=== PATIENT | female | born 1965 | race Caucasian/White ===

== ENCOUNTER 2021-11-01 19:52 | Inpatient (IN) | payer OTHER ==
[~2021-11-01] VITALS: Ht 162.6 cm; Wt 132.1 kg
[~2021-11-01 19:52] MED LIST: ALBU90OI INH; DOXY100 PO; GUAI1200ER PO; HYDACE5 PO; HYDGUAL120 PO; LEVSOD150; LEVSOD200; OXYACE7.5T PO; RXOXYACE PO; SULTRIDS PO
[2021-11-01 21:05] LABS: BASOPHILS PERCENT AUTO 1 % (0-2); EOSINOPHILS ABSOLUTE AUTO 0.16 K/mm3 (0.00-0.68); EOSINOPHILS PERCENT AUTO 2 % (0-6); Hemoglobin 17.1 g/dL (11.5-16.0); IMMATURE GRAN ABSOLUTE AUTO 0.08 K/mm3 (0.00-0.10); IMMATURE GRAN PERCENT AUTO 1 % (0-1); LYMPHOCYTES ABSOLUTE AUTO 2.02 K/mm3 (0.84-5.20); LYMPHOCYTES PERCENT AUTO 19 % (21-46); MONOCYTES ABSOLUTE AUTO 0.93 K/mm3 (0.16-1.47); MONOCYTES PERCENT AUTO 9 % (4-13); Mean Corpuscular HGB 30.6 pg (26.0-34.0); Mean Corpuscular HGB Conc 30.5 g/dL (31.5-36.5); Mean Corpuscular Volume 100 fL (80-100); Mean Platelet Volume 9.9 fL (9.1-12.4); NEUTROPHILS ABSOLUTE AUTO 7.26 K/mm3 (1.96-9.15); NEUTROPHILS PERCENT AUTO 69 % (41-73); Platelet Count 245 K/mm3 (150-400); RDW Coefficient Variation 15.2 % (11.7-14.2); RDW Standard Deviation 57.4 fL (35.1-46.3); Red Blood Cell Count 5.59 M/mm3 (3.80-5.20); White Blood Cell Count 10.55 K/mm3 (4.00-11.30)
[2021-11-01 21:09] LABS: Base Excess Venous 13.2 mmol/L; Bicarbonate Venous 33.9 mmol/L (24.0-30.0); PCO2 Venous 59.3 mmHg (38-42); PO2 Venous 91.5 mmHg (38-42); pH Blood Venous 7.41 (7.34-7.37)
[2021-11-01 21:22] LABS: Albumin, Blood 3.2 g/dL (3.4-5.0); Albumin/Globulin Ratio 0.9 (0.8-1.8); Bilirubin, Total 0.4 mg/dL (0.1-1.0); Calcium, Blood 8.7 mg/dL (8.5-10.1); Creatinine, Blood 1.07 mg/dL (0.40-1.00); Globulin, Blood 3.5 g/dL (2.2-4.0); Potassium, Blood 4.1 mmol/L (3.5-5.5); Total Protein, Blood 6.7 g/dL (6.4-8.2)
[2021-11-02] MEDS ORDERED: LEVSOD150 PO (00:05)
[2021-11-02] MEDS ORDERED: IPRAT-ALBUT 0.5-3 ML INH (00:06)
[2021-11-02] MEDS ORDERED: DYAZIDE 37.5-21 EACH PO (00:07)
[2021-11-02] MEDS ORDERED: NICODERM CQ1 EA11 TOP (00:07)
[2021-11-02] MEDS ORDERED: MONT10T PO (00:07)
[2021-11-02] MEDS ORDERED: TIOT18 INH (00:08)
[2021-11-02 01:30] LABS: Influenza A, PCR NEGATIVE (NEGATIVE); Influenza B, PCR NEGATIVE (NEGATIVE); Resp Syncytial Virus, PCR NEGATIVE (NEGATIVE); SARS-Cov-2 (COVID-19) PCR, MMC NEGATIVE (NEGATIVE)
--- NOTE | 2021-11-02 07:31 | NUR ---
PT A/OX4, ON 3L NC WITH GOOD SATURATIONS. PT UP FROM ER WITH SON. PT ABLE TO AMBULATE TO BATHROOM HOWEVER NOTED TO BE UNSTEADY. BED ALARM ON. PT C/O HEADACHE AND STATES THAT AT HOME SHE TAKES TRAMADOL. MD NOTIFIED WITH ONE TIME ORDER. MEDICATION GIVEN AND PT CONTINUED TO C/O HEADACHE AND ASKING FOR SLEEPING MEDICATION. MD CONTACTED WITH ORDER FOR FIORICET. MEDICATION NOT GIVEN PT SOUNDLY ASLEEP. PT ABLE TO SLEEP DURING THE NIGHT. PT UP TO VOID THIS MORNING AT 0645 AND VERY SLEEPY, STATES THAT AT HOME SHE FALLS ALSEEP SOMETIMES WHILE URINATING. PT UNSTEADY AND BACK IN BED W/BED ALARM.
[2021-11-02 08:26] LABS: BASOPHILS ABSOLUTE AUTO 0.03 K/mm3 (0.00-0.23); BASOPHILS PERCENT AUTO 0 % (0-2); EOSINOPHILS PERCENT AUTO 0 % (0-6); Hemoglobin 16.8 g/dL (11.5-16.0); IMMATURE GRAN ABSOLUTE AUTO 0.08 K/mm3 (0.00-0.10); IMMATURE GRAN PERCENT AUTO 1 % (0-1); LYMPHOCYTES PERCENT AUTO 8 % (21-46); MONOCYTES ABSOLUTE AUTO 0.18 K/mm3 (0.16-1.47); MONOCYTES PERCENT AUTO 2 % (4-13); Mean Corpuscular HGB 30.3 pg (26.0-34.0); Mean Corpuscular HGB Conc 29.9 g/dL (31.5-36.5); Mean Corpuscular Volume 101 fL (80-100); NEUTROPHILS ABSOLUTE AUTO 6.64 K/mm3 (1.96-9.15); NEUTROPHILS PERCENT AUTO 88 % (41-73); Platelet Count 241 K/mm3 (150-400); RDW Standard Deviation 56.7 fL (35.1-46.3); Red Blood Cell Count 5.54 M/mm3 (3.80-5.20); White Blood Cell Count 7.53 K/mm3 (4.00-11.30)
[2021-11-02 08:36] LABS: Hematocrit 56.1 % (33.0-51.0)
[2021-11-02 09:10] LABS: Bun/Creatinine Ratio 31.3 (12.0-20.0); Calcium, Blood 8.7 mg/dL (8.5-10.1); Creatinine, Blood 0.96 mg/dL (0.40-1.00); Potassium, Blood 3.9 mmol/L (3.5-5.5)
--- NOTE | 2021-11-02 18:33 | NUR ---
PATIENT IS HERE DUE TO RESP. FAILURE/HYPOXEMIA PATIENT IS UNSTEADY ON HER FEET AND SOB WHEN UP. EVEN WHILE RESTING, PT IS SOB AND HAS DECREASED 02 LEVEL. TODAY SHE WAS PLACED ON CONTINUOUS BIOX. GOAL IS TO KEEP OXYGEN AT 90% (NO HIGHER). SHE WAS INFORMED THAT SHE IS DIABETIC AND IS NOW JUST STARTING INSULIN. SHE HADN'T BEEN DIAGNOSED PREVIOUSLY. SHE WOULD LIKE INFORMATION ON GASTRIC BYPASS SO SHE CAN LOSE WEIGHT TO DECREASE THE NEED OF INSULIN. FAMILY HAS BEEN VISITING- SON BROUGHT IN FAST FOOD AND WAS ASKED TO NOT BRING IN ANY MORE DUE TO HIGH BLOOD SUGARS. PATIENT IS TALKATIVE AND WILLING TO CHAT ABOUT MEDICAL HISTORY. UNSURE OF COMPLIANCE WITH THE REQUEST TO LIMIT OUTSIDE FOOD.
[2021-11-03 04:57] LABS: PCO2 Arterial 94.4 mmHg (35-45); PO2 Arterial 67.8 mmHg (80-100); pH Blood Arterial 7.26 (7.35-7.45)
--- NOTE | 2021-11-03 05:19 | NUR ---
PT with baseline copd smoker with resp failure on bioxx to keep sats greater than 90% kept as close to 3.5 l as possible. appears to have OZ with low perfusion while sleeping. IS CDB. Critical ABG this am called to me by RT & MD ANGEL called bipap orders obtained. Also nicotine replacement patch for tobacco dependance. PT has orthopnea with complaints of ongoing resp infection for months, hypoxia & had orders for home oxygen per family was not compliant. IS per nsg, flutter per RT & Bipap for citical l PH & crit high Pco2. continues on bioxx.
[2021-11-03 05:49] LABS: BASOPHILS ABSOLUTE AUTO 0.03 K/mm3 (0.00-0.23); BASOPHILS PERCENT AUTO 0 % (0-2); EOSINOPHILS ABSOLUTE AUTO 0.03 K/mm3 (0.00-0.68); EOSINOPHILS PERCENT AUTO 0 % (0-6); Hematocrit 53.6 % (33.0-51.0); Hemoglobin 16.1 g/dL (11.5-16.0); IMMATURE GRAN ABSOLUTE AUTO 0.07 K/mm3 (0.00-0.10); IMMATURE GRAN PERCENT AUTO 1 % (0-1); LYMPHOCYTES PERCENT AUTO 20 % (21-46); MONOCYTES ABSOLUTE AUTO 0.97 K/mm3 (0.16-1.47); MONOCYTES PERCENT AUTO 11 % (4-13); Mean Corpuscular HGB 30.9 pg (26.0-34.0); Mean Corpuscular Volume 103 fL (80-100); Mean Platelet Volume 10.4 fL (9.1-12.4); NEUTROPHILS ABSOLUTE AUTO 6.15 K/mm3 (1.96-9.15); NEUTROPHILS PERCENT AUTO 68 % (41-73); Platelet Count 245 K/mm3 (150-400); RDW Standard Deviation 57.1 fL (35.1-46.3); Red Blood Cell Count 5.21 M/mm3 (3.80-5.20); White Blood Cell Count 9.05 K/mm3 (4.00-11.30)
[2021-11-03 05:55] LABS: Bun/Creatinine Ratio 40.6 (12.0-20.0); Calcium, Blood 8.3 mg/dL (8.5-10.1); Creatinine, Blood 0.84 mg/dL (0.40-1.00); Potassium, Blood 4.2 mmol/L (3.5-5.5)
--- NOTE | 2021-11-03 06:46 | NUR ---
PT on BIPAP this AM for critical ph & co2 levels. Had 3.5 l oxygen bled into bipap & desats as low as 50 into 70s while sleeping. increased oxygen via bipap to 7 l & sats improved by bioxx reading. PT has poor tolerance for bipap with some anxiety . Reassurance offered.
[2021-11-03 08:38] LABS: Bicarbonate Venous 33.6 mmol/L (24.0-30.0); PO2 Venous 126 mmHg (38-42); pH Blood Venous 7.32 (7.34-7.37)
[2021-11-03 14:31] LABS: Bicarbonate Venous 26.4 mmol/L (24.0-30.0); PCO2 Venous 53.3 mmHg (38-42); pH Blood Venous 7.35 (7.34-7.37)
--- NOTE | 2021-11-03 15:18 | NUR ---
PATIENT STATES SHE IS "STARTING TO FEEL WEIRD", AND DESCRIBES IT LIKE WHEN YOU HAVE TO MUCH ENERGY. REPORTS THAT SHE HEARS A 'CHRRRRRR' NOISE IN HER HEAD BUT THINKS THAT MAYBE IT IS THE OXYGEN THAT IS RUNNING BY GA. WHILE THIS BRUSH WASHER IS TALKING WITH HER, SHE FORGETS MID-SENTENCE WHAT SHE WANTED TO SAY. SHE IS CHATTING ALOT THIS AFTERNOON, AND OXYGEN IS REMAINING 90 AND ABOVE, HOWEVER IT APPEARS THAT THERE IS SOME FORGETFULNESS OR CONFUSTION PRESENT.
--- NOTE | 2021-11-03 16:58 | NUR ---
VBG'S ARE IMPROVING WELL PATIENT ALERTNESS AND MOOD. SHE STARTED OUT THE DAY LETHARGIC AND ON BIPAP, STILL DESATING. NOW SHE IS ALERT ON NC VISITING WITH FAMILY AND SATTING AT 90-92%. NO SLIDING SCALE INSULIN HAS BEEN REQUIRED THIS SHIFT. LS ARE WHEEZY, ESPECIALLY WITH EXPIRATION, THROUGHOUT.
--- NOTE | 2021-11-04 03:35 | NUR ---
SHIFT SUMMARY PATIENT CHANGED FROM 7L O2 BLEED IN ON BIPAP BY RT TO 10L O2 BLEED IN. PATIENT WAS DESTATING INTO THE 70'S WITH APNEIC BREATHING AT TIMES. PATIENT NOW STATING 92% ON CONTINUOUS PULSE OXIMETRY. ON 5L O2 WHEN OFF BIPAP. AXOX 4 AND 1-2 ASSIST TO BR. PIV REMAINS INTACT. TYLENOL GIVEN FOR NECK PAIN. VSS/AFEBRILE. FAMILY PRESENT FIRST FEW HOURS OF SHIFT. DENIES CHEST PAIN AND N/V. CALL LIGHT IN REACH. BED IN LOWEST POSITION. WILL CONTINUE TO MONITOR UNTIL DAY SHIFT NURSE ASSUMES CARE.
--- NOTE | 2021-11-04 04:37 | NUR ---
PATIENT COUGHING AND DESTATING IN ROOM INTO THE 70'S ON BIPAP. COUGH UP BLOOD AND ASSISTED TO SIT ON SIDE OF BED TAKING OFF BIPAP. PATIENT CLEARED THROAT AND BLOOD AFTER SPITTING INTO TISSUE. RT NOTIFIED. RT IN ROOM AND REPORT TO LEAVE BIPAP OFF AT THIS TIME. BACK ON 5L O2 NC. PATIENT LESS ANXIOUS AND STATING BACK 86%-93% AFTER TALKING TO RT. TM.
[2021-11-04 05:15] LABS: BASOPHILS ABSOLUTE AUTO 0.04 K/mm3 (0.00-0.23); BASOPHILS PERCENT AUTO 1 % (0-2); EOSINOPHILS ABSOLUTE AUTO 0.03 K/mm3 (0.00-0.68); EOSINOPHILS PERCENT AUTO 0 % (0-6); Hemoglobin 16.3 g/dL (11.5-16.0); IMMATURE GRAN ABSOLUTE AUTO 0.03 K/mm3 (0.00-0.10); IMMATURE GRAN PERCENT AUTO 0 % (0-1); LYMPHOCYTES ABSOLUTE AUTO 1.76 K/mm3 (0.84-5.20); LYMPHOCYTES PERCENT AUTO 20 % (21-46); MONOCYTES ABSOLUTE AUTO 0.58 K/mm3 (0.16-1.47); MONOCYTES PERCENT AUTO 7 % (4-13); Mean Corpuscular HGB 30.2 pg (26.0-34.0); Mean Corpuscular HGB Conc 29.4 g/dL (31.5-36.5); Mean Corpuscular Volume 103 fL (80-100); Mean Platelet Volume 9.9 fL (9.1-12.4); NEUTROPHILS ABSOLUTE AUTO 6.44 K/mm3 (1.96-9.15); NEUTROPHILS PERCENT AUTO 73 % (41-73); Platelet Count 247 K/mm3 (150-400); RDW Coefficient Variation 14.6 % (11.7-14.2); RDW Standard Deviation 55.8 fL (35.1-46.3); White Blood Cell Count 8.88 K/mm3 (4.00-11.30)
[2021-11-04 05:23] LABS: Hematocrit 55.4 % (33.0-51.0)
[2021-11-04 05:45] LABS: Albumin, Blood 3.4 g/dL (3.4-5.0); Anion Gap 2 mmol/L (6-16); Blood Urea Nitrogen 37 mg/dL (8-24); Bun/Creatinine Ratio 38.7 (12.0-20.0); CO2, Blood 43 mmol/L (21-32); Calcium, Blood 8.6 mg/dL (8.5-10.1); Chloride, Blood 95 mmol/L (98-108); Creatinine, Blood 0.96 mg/dL (0.40-1.00); Glomerular Filtration Rate 69 (60-); Glucose, Blood 100 mg/dL (70-99); Potassium, Blood 4.1 mmol/L (3.5-5.5); Sodium, Blood 140 mmol/L (136-145)
[2021-11-04 09:03] LABS: Base Excess Venous 19.2 mmol/L; Bicarbonate Venous 36.5 mmol/L (24.0-30.0); PCO2 Venous 97.8 mmHg (38-42); PO2 Venous 42.6 mmHg (38-42)
[2021-11-04 09:04] LABS: pH Blood Venous 7.28 (7.34-7.37)
[2021-11-04 15:25] LABS: pH Blood Venous 7.23 (7.34-7.37)
[2021-11-04 15:26] LABS: Base Excess Venous -13.2 mmol/L; Bicarbonate Venous 14.6 mmol/L (24.0-30.0); PCO2 Venous 34.4 mmHg (38-42); PO2 Venous 64.2 mmHg (38-42)
[2021-11-04 15:55] LABS: PO2 Arterial 59.5 mmHg (80-100); pH Blood Arterial 7.36 (7.35-7.45)
[2021-11-04 16:21] LABS: Albumin, Blood 3.1 g/dL (3.4-5.0); Anion Gap 3 mmol/L (6-16); Blood Urea Nitrogen 34 mg/dL (8-24); Bun/Creatinine Ratio 46.7 (12.0-20.0); CO2, Blood 36 mmol/L (21-32); Calcium, Blood 8.7 mg/dL (8.5-10.1); Chloride, Blood 96 mmol/L (98-108); Creatinine, Blood 0.73 mg/dL (0.40-1.00); Glomerular Filtration Rate 95 (60-); Glucose, Blood 143 mg/dL (70-99); Phosphorus, Blood 2.7 mg/dL (2.5-4.9); Potassium, Blood 4.5 mmol/L (3.5-5.5); Sodium, Blood 135 mmol/L (136-145)
--- NOTE | 2021-11-04 18:15 | NUR ---
PATIENT A/OX4 THIS SHIFT, UP WITH FWW AND 1 ASSIST TO RESTROOM. 5LO2 TO MAINTAIN SATS, ENCOURGING USE OF BIPAP BUT PATIENT NOT TOLERATING WELL TODAY. VSS THIS SHIFT. REDENESS TO FOLDS, OTHERWISE SKIN INTACT. TOLERATING ADA DIET, AC BLOOD SUGARS WITH COVERAGE PER SLIDING SCALE. ANXIOUS AT TIMES, BUT CALMS WITH CONVERSATION. FAMILY AT BEDSIDE THROUGHOUT THE DAY ASSISTING WITH CARE.
--- NOTE | 2021-11-05 01:49 | NUR ---
PATIENT IN AND OUT OF BED PULLING OFF CPAP AND 02 MONITORING. BOTH BEING CONSTANTLY REPLACED PATIENT GETS UP AND DOWN. 02 DIPPING DOWN INTO THE LOW 80'S EACH TIME SHE WOULD DO THIS. FINALLY, 02 VIA HIGH FLOW CANULLA PLACED AND FLOW INCREASED TO 5 LITERS TO MAINTAIN SATURATION BETWEEN 88 AND 92% AT REST AT SIDE OF BED. IMPORTANCE OF KEEPING [address] EXPLAINED AGAIN TO PATIENT. PATIENT AGAIN VERBALIZES UNDERSTANDING OF CONSEQUENCES OF POOR 02 SATURATION. WILL CONTINUE CLOSE MONITORING
[2021-11-05 04:52] LABS: BASOPHILS ABSOLUTE AUTO 0.03 K/mm3 (0.00-0.23); BASOPHILS PERCENT AUTO 0 % (0-2); EOSINOPHILS ABSOLUTE AUTO 0.01 K/mm3 (0.00-0.68); EOSINOPHILS PERCENT AUTO 0 % (0-6); Hematocrit 51.5 % (33.0-51.0); Hemoglobin 15.7 g/dL (11.5-16.0); IMMATURE GRAN ABSOLUTE AUTO 0.03 K/mm3 (0.00-0.10); IMMATURE GRAN PERCENT AUTO 0 % (0-1); LYMPHOCYTES ABSOLUTE AUTO 1.53 K/mm3 (0.84-5.20); LYMPHOCYTES PERCENT AUTO 18 % (21-46); MONOCYTES ABSOLUTE AUTO 0.75 K/mm3 (0.16-1.47); MONOCYTES PERCENT AUTO 9 % (4-13); Mean Corpuscular HGB 30.8 pg (26.0-34.0); Mean Corpuscular HGB Conc 30.5 g/dL (31.5-36.5); Mean Corpuscular Volume 101 fL (80-100); NEUTROPHILS ABSOLUTE AUTO 6.26 K/mm3 (1.96-9.15); NEUTROPHILS PERCENT AUTO 73 % (41-73); Platelet Count 220 K/mm3 (150-400); RDW Coefficient Variation 14.3 % (11.7-14.2); RDW Standard Deviation 54.2 fL (35.1-46.3); White Blood Cell Count 8.61 K/mm3 (4.00-11.30)
[2021-11-05 05:10] LABS: Albumin, Blood 3.1 g/dL (3.4-5.0); Anion Gap 2 mmol/L (6-16); Blood Urea Nitrogen 32 mg/dL (8-24); CO2, Blood 42 mmol/L (21-32); Calcium, Blood 8.5 mg/dL (8.5-10.1); Chloride, Blood 96 mmol/L (98-108); Glomerular Filtration Rate 85 (60-); Glucose, Blood 112 mg/dL (70-99); Phosphorus, Blood 3.2 mg/dL (2.5-4.9); Sodium, Blood 140 mmol/L (136-145)
--- NOTE | 2021-11-05 06:13 | NUR ---
aWAKE MOST OF THE NIGHT. UNABLE TO TOLERATE BIPAP/CPAP MACHINE. RT AWARE PATIENT COULD NOT KEEP MASK ON FACE. INITIALLY VERY IMPULSIVE REMOVING MASK, AND 02 MONITOR TO GET OOB. THEN WHEN SHE FINALLY FELL ASLEEP, MASK KEPT SLIPPING ABOVE HER MOUTH, AND SATS WOULD DROP INTO HIGH 70'S. FINALLY REPLACED MASK WITH 5 LITERS HIGH FLOW CANULLA, AND PATIENT NEVER DIPPED BELOW 87% WHILE ASLEEP. PATIENT DEFINATELY NEEDS ALARM AT NIGHTFOR SAFETY
--- NOTE | 2021-11-05 11:48 | NUR ---
PT SON AT BEDSIDE
--- NOTE | 2021-11-05 14:58 | NUR ---
PATIENT STATED HER BOTTOM/COCCYX WAS HURTING. REPOSITIONED ON PILLOWS AND PULLED HER UP IN BED.
--- NOTE | 2021-11-05 18:26 | NUR ---
SHIFT SUMMARY: PATIENT ALERT AND ORIENTED X4. SHE IS A 1 PERSON ASSIST WITH A FWW. SHE IS TOLERATING THE O2 AND BIPAP BUT NEEDS A REMINDER TO KEEP THEM ON. O2 IS SET AT 5L AND THE BIPAP AT 10L. SHE HAS HAD FAMILY IN HER ROOM MOST OF THE SHIFT. SHE HAS SOME REDNESS WITHIN HER FOLDS. 1-2+ EDEMA IN BLE. HER O2 HAS REMAINED ABOVE 88% THE MAJORITTY OF THE SHIFT. HAS NOT COMPLAINED OF PAIN OR NAUSEA. BED IN LOWEST POSITION, CALL LIGHT IN REACH. WILL CONTINUE TO MONITOR UNTIL END OF SHIFT.
--- NOTE | 2021-11-06 04:47 | NUR ---
PT ON AND OFF CPAP ALL NIGHT. SATS RANGING FROM 84-91. PT GETS ANXIOUS WITH CPAP ON AND IS UNCOMFORTABLE IN BED. AT 0430 PT PUT IN CHAIR WITH CPAP AND GIVEN TYLENOL AND ICE FOR BACK PAIN.
[2021-11-06 05:29] LABS: PCO2 Venous 77.7 mmHg (38-42); PO2 Venous 115 mmHg (38-42); pH Blood Venous 7.35 (7.34-7.37)
[2021-11-06 05:30] LABS: Base Excess Venous 17.7 mmol/L
[2021-11-06 05:49] LABS: Thyroid Stimulating Hormone 44.8 uIU/mL (0.360-4.800); Thyroxine (T4) 3.9 ug/dL (4.8-13.9)
--- NOTE | 2021-11-06 11:03 | NUR ---
O2 SATURATION PATIENT PLACED ON 2L/NC AND OXYGEN SATURATION OBSERVED PER OLEG'S REQUEST TO SHOW NEED FOR BIPAP. PATIENT BSERVED TO BE 84% ON 2L AFTER 3 MINUTES AND 81% AFTER 5 MINUTES. PATIENT RETURNED TO 6L/NC AND RECOVERED TO 92%
--- NOTE | 2021-11-06 18:14 | NUR ---
PATIENT CONTINUES TO HAVE PAIN IN THE SHOULDERS, NECK, BACK PART OF HER CHRONIC ddd. OXYGEN IS SET AT 2 L AND PATIENT IS SATTING 92% USING FLUTTER VALVE. PATIENT HAD PT EVAL TODAY, AND THEY DETERMINED SHE DOES NOT TO HAVE PT. THEY SAID SHE IS AT HER BASE LINE. PLAN IS TO DISCHARGE TOMORROW WITH HOME OXYGEN- SHE IS STILL UNSURE OF IF HOME IS GOING [place], OR WITH KIDS IN [place].
--- NOTE | 2021-11-07 04:34 | NUR ---
SHIFT SUMMARY - NO ACUTE CHANGES THROUGHOUT THIS SHIFT. PT HAS SLEPT FOR APPX 4 HOURS WITH THE TRILOGY ON, WITH AN OCCASIONAL DESAT TO LOW 80'S WITH A RECOVERY TIME, WITHOUT ANY ADDITIONAL INTERVENTIONS, WITHIN 30 SECONDS TO SATS IN THE UPPER 80'S/LOW 90'S. PT DENIED ANY PAIN TONIGHT. PT IS ANTICIPATING DISCHARGE HOME TODAY TO THE CARE OF HER FAMILY. PT WAS UP TO THE BRP WITH A SBA, WITH A WALKER. CALL LIGHT WITHIN REACH. BED IN LOW POSITION. WILL CONTINUE TO MONITOR UNTIL AM SHIFT CHANGE.
[2021-11-07] MEDS ORDERED: LISI20 PO (11:25)
[2021-11-07] MEDS ORDERED: METF500C PO (11:26)
[2021-11-07] MEDS ORDERED: PRED20 PO (11:31)
[2021-11-07] MEDS ORDERED: LASIX20 M2 PO (17:11)
--- NOTE | 2021-11-07 17:38 | NUR ---
DC HOME/LATE ENTRY: AT 1555 PT DC'D HOME WITH SON WITH HOME O2 AND A C-PAP MACHINE PROVIDED BY [facility]. PIV DC'D WITH CATH TIP INTACT, SITE WNL'S. DC INSTRUCTIONS GIVEN TO PT. ALL PERSONAL BELONGINGS SENT WITH PT.
== END 2021-11-07 16:11 | disposition home or self-care (01) | DRG 189 ==
LOC: ER 19:52 → MEDS 23:14
PROVIDERS: Emergency Medicine; Family Medicine; Internal Medicine; Student in an Organized Health Care Education/Training Program; ADMIT Hospitalist
PROC: 5A09457 Assistance with Respiratory Ventilation, 24-96 Consecutive Hours, Continuous Positive Airway Pressure (ICD-10-PCS; principal; 2021-11-01)
DX: J96.21 Acute and chronic respiratory failure with hypoxia (principal); G92.8 Other toxic encephalopathy; E66.2 Morbid (severe) obesity with alveolar hypoventilation; Z68.42 Body mass index [BMI] 45.0-49.9, adult; J44.1 Chronic obstructive pulmonary disease with (acute) exacerbation; E87.2 Acidosis; Z20.822 Contact with and (suspected) exposure to COVID-19; E11.65 Type 2 diabetes mellitus with hyperglycemia; J96.02 Acute respiratory failure with hypercapnia; I10 Essential (primary) hypertension; E03.9 Hypothyroidism, unspecified; R04.0 Epistaxis; F17.210 Nicotine dependence, cigarettes, uncomplicated; Z79.899 Other long term (current) drug therapy; Z71.6 Tobacco abuse counseling; Z98.890 Other specified postprocedural states; Z88.0 Allergy status to penicillin; Z88.6 Allergy status to analgesic agent; Z90.710 Acquired absence of both cervix and uterus
CPT/HCPCS: 0241U; 36415; 36600; 71045; 80048; 80053; 80069; 82803; 82947; 83036; 83880; 84436; 84443; 84484; 85025; 93005; 93010; 94640; 94645; 94660; 94664; 94760; 94761; 94762; 96374; 96376; 97161; 97530; 99285-25; A9270; J1650; J2930; J7512

== ENCOUNTER → 2021-12-06 | Outpatient (CLI) | payer OTHER ==
[~2021-12-06] MED LIST changes: +DYAZIDE 37.5-21 EACH PO; +IPRAT-ALBUT 0.5-3 ML INH; +LASIX20 M2 PO; +LEVSOD150 PO; +LISI20 PO; +METF500C PO; +MONT10T PO; +NICODERM CQ1 EA11 TOP; +PRED20 PO; +TIOT18 INH
== END ==
LOC: LAB SHORT 15:03 → LAB 15:03
DX: L03.116 Cellulitis of left lower limb (principal)
CPT/HCPCS: 87070; 87075; 87205

== ENCOUNTER → 2022-02-10 | Outpatient (CLI) | payer OTHER | END | disposition home or self-care (01) | LOC: LAB SHORT 10:20 | DX: R30.0 Dysuria (principal) | CPT/HCPCS: 87086 ==

== ENCOUNTER → 2022-03-29 | Outpatient (CLI) | payer OTHER | END | disposition home or self-care (01) | LOC: LAB SHORT 16:51 → LAB 16:51 | DX: R30.0 Dysuria (principal) | CPT/HCPCS: 87086 ==

== ENCOUNTER → 2022-10-20 | Outpatient (CLI) | payer OTHER | LOC: LAB 17:26 → LAB SHORT 17:26 | DX: R35.0 Frequency of micturition (principal) | CPT/HCPCS: 87086 ==

== ENCOUNTER → 2022-11-16 | Outpatient (CLI) | payer OTHER ==
[2022-11-17 10:56] LABS: Candida species (DNA Probe) Negative (NEGATIVE); G. vaginalis (DNA Probe) Negative (NEGATIVE); T. vaginalis (DNA Probe) Negative (NEGATIVE)
== END | disposition home or self-care (01) ==
LOC: LAB SHORT 16:00 → LAB 16:00
PROVIDERS: Physician Assistant
DX: N39.0 Urinary tract infection, site not specified (principal); L29.3 Anogenital pruritus, unspecified
CPT/HCPCS: 87086; 87147; 87480; 87510; 87660

== ENCOUNTER → 2022-12-10 | Outpatient (CLI) | payer OTHER | LOC: LAB SHORT 17:08 → LAB 17:08 | DX: N89.8 Other specified noninflammatory disorders of vagina (principal) | CPT/HCPCS: 87252; 87254 ==

== ENCOUNTER → 2022-12-15 | Outpatient (CLI) | payer OTHER | END | disposition home or self-care (01) | LOC: LAB SHORT 17:58 → LAB 17:58 | DX: B37.31 Acute candidiasis of vulva and vagina (principal) | CPT/HCPCS: 87077; 87086; 87186 ==

== ENCOUNTER 2023-03-14 19:31 | Emergency (ER) | payer OTHER ==
[~2023-03-14] VITALS: Ht 160 cm; Wt 126.5 kg
[2023-03-14 20:05] LABS: BASOPHILS ABSOLUTE AUTO 0.05 K/mm3 (0.00-0.23); BASOPHILS PERCENT AUTO 1 % (0-2); EOSINOPHILS ABSOLUTE AUTO 0.15 K/mm3 (0.00-0.68); EOSINOPHILS PERCENT AUTO 2 % (0-6); Hematocrit 37.7 % (33.0-51.0); Hemoglobin 12.4 g/dL (11.5-16.0); IMMATURE GRAN ABSOLUTE AUTO 0.11 K/mm3 (0.00-0.10); IMMATURE GRAN PERCENT AUTO 1 % (0-1); LYMPHOCYTES ABSOLUTE AUTO 0.74 K/mm3 (0.84-5.20); LYMPHOCYTES PERCENT AUTO 8 % (21-46); MONOCYTES PERCENT AUTO 6 % (4-13); Mean Corpuscular HGB 30.6 pg (26.0-34.0); Mean Corpuscular HGB Conc 32.9 g/dL (31.5-36.5); Mean Corpuscular Volume 93 fL (80-100); Mean Platelet Volume 10.4 fL (9.1-12.4); NEUTROPHILS ABSOLUTE AUTO 8.28 K/mm3 (1.96-9.15); NEUTROPHILS PERCENT AUTO 83 % (41-73); Platelet Count 193 K/mm3 (150-400); RDW Coefficient Variation 12.4 % (11.7-14.2); Red Blood Cell Count 4.05 M/mm3 (3.80-5.20); White Blood Cell Count 9.93 K/mm3 (4.00-11.30)
[2023-03-14 20:13] LABS: Albumin, Blood 3.7 g/dL (3.4-5.0); Albumin/Globulin Ratio 0.9 (0.8-1.8); Bilirubin, Total 0.6 mg/dL (0.1-1.0); Bun/Creatinine Ratio 16.5 (12.0-20.0); Calcium, Blood 9.7 mg/dL (8.5-10.1); Creatinine, Blood 1.03 mg/dL (0.40-1.00); Globulin, Blood 4.1 g/dL (2.2-4.0); Potassium, Blood 3.6 mmol/L (3.5-5.5); Total Protein, Blood 7.8 g/dL (6.4-8.2)
[2023-03-14 21:08] LABS: Influenza A, PCR NEGATIVE (NEGATIVE); Influenza B, PCR NEGATIVE (NEGATIVE); Resp Syncytial Virus, PCR NEGATIVE (NEGATIVE)
[2023-03-14 21:15] VITALS: BP 153/93
[2023-03-14] MEDS ORDERED: ONDA4ODT MM (21:46)
[2023-03-14] MEDS ORDERED: Prednisone20 MG PO (21:46)
[2023-03-14 22:40] LABS: SARS-Cov-2 (COVID-19) PCR, MMC POSITIVE (NEGATIVE)
== END 2023-03-14 22:51 | disposition home or self-care (01) ==
LOC: ER 19:31
PROVIDERS: Emergency Medicine; Student in an Organized Health Care Education/Training Program
DX: U07.1 COVID-19 (principal); J43.9 Emphysema, unspecified; I10 Essential (primary) hypertension; E03.9 Hypothyroidism, unspecified; F17.210 Nicotine dependence, cigarettes, uncomplicated; Z88.0 Allergy status to penicillin; Z88.6 Allergy status to analgesic agent; Z79.899 Other long term (current) drug therapy
CPT/HCPCS: 0241U; 71045; 80053; 84484; 85025; 93005; 93010; 94640; 94644; 94664; 96374; 96375; 99285-25; A9270; J2405; J2930

== ENCOUNTER → 2023-06-03 | Outpatient (CLI) | payer OTHER ==
[~2023-06-03] MED LIST changes: +ONDA4ODT MM; +Prednisone20 MG PO
== END ==
LOC: LAB 17:14 → LAB SHORT 17:14
DX: L02.215 Cutaneous abscess of perineum (principal)
CPT/HCPCS: 87070; 87077; 87186; 87205

== ENCOUNTER 2023-06-29 02:01 | Day surgery (SDC) | payer OTHER | END 2023-06-29 23:25 | disposition home or self-care (01) | LOC: WOUND 02:01 | DX: L02.214 Cutaneous abscess of groin (principal); E03.9 Hypothyroidism, unspecified; I10 Essential (primary) hypertension; E11.9 Type 2 diabetes mellitus without complications; J44.9 Chronic obstructive pulmonary disease, unspecified; Z88.0 Allergy status to penicillin | CPT/HCPCS: G0463 ==

== ENCOUNTER 2023-07-06 02:58 | Day surgery (SDC) | payer OTHER | END 2023-07-06 23:05 | disposition home or self-care (01) | LOC: WOUND 02:58 | DX: L02.215 Cutaneous abscess of perineum (principal); J44.9 Chronic obstructive pulmonary disease, unspecified; E11.9 Type 2 diabetes mellitus without complications; I10 Essential (primary) hypertension; E03.9 Hypothyroidism, unspecified; Z99.81 Dependence on supplemental oxygen | CPT/HCPCS: A9270; G0463 ==

== ENCOUNTER 2023-07-14 01:36 | Day surgery (SDC) | payer OTHER | END 2023-07-14 23:23 | disposition home or self-care (01) | LOC: WOUND 01:36 | DX: L02.214 Cutaneous abscess of groin (principal); E03.9 Hypothyroidism, unspecified; E11.9 Type 2 diabetes mellitus without complications; I10 Essential (primary) hypertension; J44.9 Chronic obstructive pulmonary disease, unspecified; Z99.81 Dependence on supplemental oxygen | CPT/HCPCS: A9270; G0463 ==

== ENCOUNTER 2023-07-21 01:58 | Day surgery (SDC) | payer OTHER | END 2023-07-21 22:56 | disposition home or self-care (01) | LOC: WOUND 01:58 | DX: L02.215 Cutaneous abscess of perineum (principal); E03.9 Hypothyroidism, unspecified; E11.8 Type 2 diabetes mellitus with unspecified complications; I10 Essential (primary) hypertension; J44.9 Chronic obstructive pulmonary disease, unspecified | CPT/HCPCS: G0463 ==

== ENCOUNTER 2023-07-28 01:33 | Day surgery (SDC) | payer OTHER ==
[2023-07-28] MEDS ORDERED: Miconazole Nitrate 2% 85 GM PWD ONE (14:05)
== END 2023-07-28 22:54 | disposition home or self-care (01) ==
LOC: WOUND 01:33
DX: L02.214 Cutaneous abscess of groin (principal); L02.215 Cutaneous abscess of perineum; E11.9 Type 2 diabetes mellitus without complications; J44.9 Chronic obstructive pulmonary disease, unspecified; E03.9 Hypothyroidism, unspecified; I10 Essential (primary) hypertension
CPT/HCPCS: A9270; G0463

== ENCOUNTER 2023-08-04 03:23 | Day surgery (SDC) | payer OTHER ==
[2023-08-04] MEDS ORDERED: Miconazole Nitrate 2% 85 GM PWD ONE (12:50)
== END 2023-08-04 22:47 | disposition home or self-care (01) ==
LOC: WOUND 03:23
DX: L02.215 Cutaneous abscess of perineum (principal); E03.9 Hypothyroidism, unspecified; E11.8 Type 2 diabetes mellitus with unspecified complications; I10 Essential (primary) hypertension
CPT/HCPCS: A9270; G0463

== ENCOUNTER 2023-09-22 02:37 | Day surgery (SDC) | payer OTHER | END 2023-09-22 23:12 | disposition home or self-care (01) | LOC: WOUND 02:37 | DX: L02.215 Cutaneous abscess of perineum (principal); L02.214 Cutaneous abscess of groin; S31.104D Unspecified open wound of abdominal wall, left lower quadrant without penetration into peritoneal cavity, subsequent encounter; J44.9 Chronic obstructive pulmonary disease, unspecified; E03.9 Hypothyroidism, unspecified; E11.8 Type 2 diabetes mellitus with unspecified complications; I10 Essential (primary) hypertension | CPT/HCPCS: G0463 ==

== ENCOUNTER 2023-10-06 04:51 | Day surgery (SDC) | payer OTHER | END 2023-10-06 23:02 | disposition home or self-care (01) | LOC: WOUND 04:51 | DX: L02.215 Cutaneous abscess of perineum (principal); E03.9 Hypothyroidism, unspecified; E11.8 Type 2 diabetes mellitus with unspecified complications; I10 Essential (primary) hypertension | CPT/HCPCS: G0463 ==

== ENCOUNTER 2023-10-13 02:51 | Day surgery (SDC) | payer OTHER | END 2023-10-13 22:57 | disposition home or self-care (01) | LOC: WOUND 02:51 | DX: L02.215 Cutaneous abscess of perineum (principal); E03.9 Hypothyroidism, unspecified; E11.8 Type 2 diabetes mellitus with unspecified complications; I10 Essential (primary) hypertension; J44.9 Chronic obstructive pulmonary disease, unspecified | CPT/HCPCS: G0463 ==

== ENCOUNTER 2023-10-20 03:48 | Day surgery (SDC) | payer OTHER ==
[2023-10-20] MEDS ORDERED: Miconazole Nitrate 2% 85 GM PWD ONE (14:41)
[2023-10-20] MEDS ORDERED: Miconazole Nitrate 28 GM CREAM..G. TOP ONE (14:43)
== END 2023-10-20 23:13 | disposition home or self-care (01) ==
LOC: WOUND 03:48
DX: L02.215 Cutaneous abscess of perineum (principal); E11.9 Type 2 diabetes mellitus without complications; J44.9 Chronic obstructive pulmonary disease, unspecified; E03.9 Hypothyroidism, unspecified; I10 Essential (primary) hypertension
CPT/HCPCS: A9270; G0463

== ENCOUNTER 2023-11-28 23:28 | Emergency (ER) | payer OTHER ==
[~2023-11-28] VITALS: Ht 162.6 cm; Wt 134.7 kg
[2023-11-28 23:39] VITALS: BP 131/70
== END 2023-11-29 00:33 | disposition home or self-care (01) ==
LOC: ER 23:28
DX: I83.891 Varicose veins of right lower extremity with other complications (principal); I10 Essential (primary) hypertension; J44.9 Chronic obstructive pulmonary disease, unspecified; E03.9 Hypothyroidism, unspecified; Z79.52 Long term (current) use of systemic steroids; Z79.84 Long term (current) use of oral hypoglycemic drugs; Z79.899 Other long term (current) drug therapy; Z88.0 Allergy status to penicillin; Z88.6 Allergy status to analgesic agent
CPT/HCPCS: 99282

== ENCOUNTER 2023-12-07 02:46 | Day surgery (SDC) | payer OTHER ==
[2023-12-07] MEDS ORDERED: Miconazole Nitrate 2% 85 GM PWD ONE (07:46)
== END 2023-12-07 22:47 | disposition home or self-care (01) ==
LOC: WOUND 02:46
DX: L02.214 Cutaneous abscess of groin (principal); E03.9 Hypothyroidism, unspecified; E11.8 Type 2 diabetes mellitus with unspecified complications; I10 Essential (primary) hypertension; J44.9 Chronic obstructive pulmonary disease, unspecified
CPT/HCPCS: A9270; G0463

== ENCOUNTER 2023-12-14 03:11 | Day surgery (SDC) | payer OTHER ==
[2023-12-14] MEDS ORDERED: Miconazole Nitrate 2% 85 GM PWD ONE (07:42)
== END 2023-12-14 23:11 | disposition home or self-care (01) ==
LOC: WOUND 03:11
DX: L02.215 Cutaneous abscess of perineum (principal); E03.9 Hypothyroidism, unspecified; E11.8 Type 2 diabetes mellitus with unspecified complications; I10 Essential (primary) hypertension
CPT/HCPCS: A9270; G0463

== ENCOUNTER 2023-12-21 02:06 | Day surgery (SDC) | payer OTHER ==
[2023-12-21] MEDS ORDERED: Miconazole Nitrate 28 GM CREAM..G. TOP ONE (08:16)
== END 2023-12-21 23:00 | disposition home or self-care (01) ==
LOC: WOUND 02:06
DX: L02.214 Cutaneous abscess of groin (principal); J44.9 Chronic obstructive pulmonary disease, unspecified; E11.9 Type 2 diabetes mellitus without complications; L02.215 Cutaneous abscess of perineum; I10 Essential (primary) hypertension; E03.9 Hypothyroidism, unspecified; Z99.81 Dependence on supplemental oxygen
CPT/HCPCS: A9270; G0463

== ENCOUNTER 2023-12-28 02:22 | Day surgery (SDC) | payer OTHER | END 2023-12-29 22:45 | disposition home or self-care (01) | LOC: WOUND 02:22 | DX: L02.214 Cutaneous abscess of groin (principal); E11.9 Type 2 diabetes mellitus without complications; J44.9 Chronic obstructive pulmonary disease, unspecified; E03.9 Hypothyroidism, unspecified; I10 Essential (primary) hypertension; Z99.81 Dependence on supplemental oxygen | CPT/HCPCS: G0463 ==

== ENCOUNTER 2024-01-11 02:32 | Day surgery (SDC) | payer OTHER | END 2024-01-11 23:00 | disposition home or self-care (01) | LOC: WOUND 02:32 | DX: L02.214 Cutaneous abscess of groin (principal); L02.215 Cutaneous abscess of perineum; J44.9 Chronic obstructive pulmonary disease, unspecified; E03.9 Hypothyroidism, unspecified; E11.9 Type 2 diabetes mellitus without complications; I10 Essential (primary) hypertension; Z99.81 Dependence on supplemental oxygen | CPT/HCPCS: G0463 ==

== ENCOUNTER → 2024-01-22 | Outpatient (CLI) | payer OTHER | LOC: LAB 15:48 → LAB SHORT 15:48 | DX: N39.0 Urinary tract infection, site not specified (principal) | CPT/HCPCS: 87077; 87086; 87147; 87186 ==

== ENCOUNTER 2024-02-01 05:28 | Day surgery (SDC) | payer OTHER | END 2024-02-01 23:13 | disposition home or self-care (01) | LOC: WOUND 05:28 | DX: L02.214 Cutaneous abscess of groin (principal); E11.8 Type 2 diabetes mellitus with unspecified complications; I10 Essential (primary) hypertension; E03.9 Hypothyroidism, unspecified; Z12.2 Encounter for screening for malignant neoplasm of respiratory organs; Z87.891 Personal history of nicotine dependence; J43.9 Emphysema, unspecified; R91.8 Other nonspecific abnormal finding of lung field | CPT/HCPCS: 71271; A6196; G0463 ==

== ENCOUNTER → 2024-02-12 | Outpatient (CLI) | payer OTHER | END | disposition home or self-care (01) | LOC: LAB SHORT 15:26 → LAB 15:26 | DX: N39.0 Urinary tract infection, site not specified (principal) | CPT/HCPCS: 87086 ==

== ENCOUNTER 2024-02-15 03:56 | Day surgery (SDC) | payer OTHER | END 2024-02-15 22:48 | disposition home or self-care (01) | LOC: WOUND 03:56 | DX: L02.214 Cutaneous abscess of groin (principal); E03.9 Hypothyroidism, unspecified; E11.8 Type 2 diabetes mellitus with unspecified complications; I10 Essential (primary) hypertension; J44.9 Chronic obstructive pulmonary disease, unspecified | CPT/HCPCS: G0463 ==

== ENCOUNTER 2024-03-07 04:39 | Day surgery (SDC) | payer OTHER | END 2024-03-07 23:00 | disposition home or self-care (01) | LOC: WOUND 04:39 | DX: L02.214 Cutaneous abscess of groin (principal); E03.9 Hypothyroidism, unspecified; E11.8 Type 2 diabetes mellitus with unspecified complications; I10 Essential (primary) hypertension; J44.9 Chronic obstructive pulmonary disease, unspecified | CPT/HCPCS: G0463 ==

== ENCOUNTER → 2024-03-07 | Outpatient (CLI) | payer OTHER | LOC: LAB 09:23 → LAB SHORT 09:23 | DX: N39.0 Urinary tract infection, site not specified (principal) | CPT/HCPCS: 87086 ==

== ENCOUNTER 2024-03-21 04:43 | Day surgery (SDC) | payer OTHER | END 2024-03-21 23:00 | disposition home or self-care (01) | LOC: WOUND 04:43 | DX: L02.214 Cutaneous abscess of groin (principal); E11.9 Type 2 diabetes mellitus without complications; J44.9 Chronic obstructive pulmonary disease, unspecified; L02.215 Cutaneous abscess of perineum; E03.9 Hypothyroidism, unspecified; I10 Essential (primary) hypertension; Z99.81 Dependence on supplemental oxygen | CPT/HCPCS: G0463 ==

== ENCOUNTER 2024-03-28 02:07 | Day surgery (SDC) | payer OTHER | END 2024-03-28 23:39 | disposition home or self-care (01) | LOC: WOUND 02:07 | DX: L02.214 Cutaneous abscess of groin (principal); E03.9 Hypothyroidism, unspecified; I10 Essential (primary) hypertension; E11.8 Type 2 diabetes mellitus with unspecified complications; J44.9 Chronic obstructive pulmonary disease, unspecified | CPT/HCPCS: G0463 ==

== ENCOUNTER 2024-04-04 01:16 | Day surgery (SDC) | payer OTHER | END 2024-04-04 23:17 | disposition home or self-care (01) | LOC: WOUND 01:16 | DX: L02.214 Cutaneous abscess of groin (principal); E11.9 Type 2 diabetes mellitus without complications; J44.9 Chronic obstructive pulmonary disease, unspecified; L02.215 Cutaneous abscess of perineum; E03.9 Hypothyroidism, unspecified; I10 Essential (primary) hypertension; Z99.81 Dependence on supplemental oxygen | CPT/HCPCS: G0463 ==

== ENCOUNTER 2024-04-11 03:30 | Day surgery (SDC) | payer OTHER | END 2024-04-11 23:54 | disposition home or self-care (01) | LOC: WOUND 03:30 | DX: L02.214 Cutaneous abscess of groin (principal); E03.9 Hypothyroidism, unspecified; E11.8 Type 2 diabetes mellitus with unspecified complications; I10 Essential (primary) hypertension; J44.9 Chronic obstructive pulmonary disease, unspecified | CPT/HCPCS: G0463 ==

== ENCOUNTER 2024-04-18 03:06 | Day surgery (SDC) | payer OTHER ==
[2024-04-18] MEDS ORDERED: Miconazole Nitrate 28 GM CREAM..G. TOP ONE (08:52)
== END 2024-04-18 23:00 | disposition home or self-care (01) ==
LOC: WOUND 03:06
DX: L02.214 Cutaneous abscess of groin (principal); E11.622 Type 2 diabetes mellitus with other skin ulcer; E03.9 Hypothyroidism, unspecified; I10 Essential (primary) hypertension
CPT/HCPCS: A9270; G0463

== ENCOUNTER 2024-04-25 03:28 | Day surgery (SDC) | payer OTHER ==
[2024-04-25] MEDS ORDERED: Miconazole Nitrate 2% 85 GM PWD ONE (08:48)
[2024-04-25] MEDS ORDERED: Miconazole Nitrate 28 GM CREAM..G. TOP ONE (08:48)
== END 2024-04-25 23:00 | disposition home or self-care (01) ==
LOC: WOUND 03:28
DX: L02.214 Cutaneous abscess of groin (principal); I10 Essential (primary) hypertension; E03.9 Hypothyroidism, unspecified; J44.9 Chronic obstructive pulmonary disease, unspecified; E11.9 Type 2 diabetes mellitus without complications
CPT/HCPCS: A9270; G0463

== ENCOUNTER → 2024-09-25 | Outpatient (CLI) | payer MEDICARE, OTHER | END | disposition home or self-care (01) | LOC: LAB 15:27 → LAB SHORT 15:27 | DX: R30.0 Dysuria (principal) | CPT/HCPCS: 87086 ==

== ENCOUNTER → 2024-10-03 | Outpatient (CLI) | payer MEDICARE, OTHER ==
[2024-10-03 14:31] LABS: Microalb/Creat Ratio UR, Rand Unable to Calculate mg/g (0.000-30.000); Microalbumin, Random Urine <5.000 mg/L (0.000-20.000)
== END ==
LOC: LAB SHORT 12:18 → LAB 12:18
PROVIDERS: Physician Assistant
DX: E11.69 Type 2 diabetes mellitus with other specified complication (principal)
CPT/HCPCS: 82043; 82570

== ENCOUNTER → 2025-05-02 | Outpatient (CLI) | payer MEDICARE, OTHER ==
[2025-05-02 16:07] LABS: BASOPHILS ABSOLUTE AUTO 0.03 K/mm3 (0.00-0.23); BASOPHILS PERCENT AUTO 0 % (0-2); EOSINOPHILS ABSOLUTE AUTO 0.36 K/mm3 (0.00-0.68); EOSINOPHILS PERCENT AUTO 4 % (0-6); Hematocrit 37.2 % (33.0-51.0); Hemoglobin 11.9 g/dL (11.5-16.0); IMMATURE GRAN ABSOLUTE AUTO 0.06 K/mm3 (0.00-0.10); IMMATURE GRAN PERCENT AUTO 1 % (0-1); LYMPHOCYTES ABSOLUTE AUTO 2.19 K/mm3 (0.84-5.20); LYMPHOCYTES PERCENT AUTO 23 % (21-46); MONOCYTES ABSOLUTE AUTO 0.66 K/mm3 (0.16-1.47); MONOCYTES PERCENT AUTO 7 % (4-13); Mean Corpuscular HGB Conc 32.0 g/dL (31.5-36.5); Mean Corpuscular Volume 95 fL (80-100); NEUTROPHILS ABSOLUTE AUTO 6.08 K/mm3 (1.96-9.15); NEUTROPHILS PERCENT AUTO 65 % (41-73); NRBC ABSOLUTE 0.00 K/mm3 (0.00-0.02); NRBC Auto 0.0 /100 WBC (0.0-0.2); Platelet Count 257 K/mm3 (150-400); RDW Coefficient Variation 13.1 % (11.7-14.2); RDW Standard Deviation 45.5 fL (35.1-46.3)
[2025-05-02 20:00] LABS: Thyroid Stimulating Hormone 1.820 uIU/mL (0.360-4.800)
[2025-05-02 20:01] LABS: Alanine Aminotransfer (ALT/SGP 24 U/L (12-78); Albumin, Blood 3.4 g/dL (3.4-5.0); Albumin/Globulin Ratio 1.0 (0.8-1.8); Anion Gap 10 mmol/L (3-11); Aspartate Aminotrans (AST/SGOT 15 U/L (12-37); Bilirubin, Total 0.6 mg/dL (0.1-1.0); Blood Urea Nitrogen 16 mg/dL (8-24); CHOL/HDL RATIO 3.1; CO2, Blood 27 mmol/L (21-32); Calcium, Blood 9.0 mg/dL (8.5-10.1); Chloride, Blood 106 mmol/L (98-108); Cholesterol 154 mg/dL (50-200); Creatinine, Blood 0.88 mg/dL (0.40-1.00); Globulin, Blood 3.5 g/dL (2.2-4.0); Glucose, Blood 94 mg/dL (70-99); HDL Cholesterol 50 mg/dL (>39); LDL/HDL RATIO 1.6; Low Density Lipoprotein Chol 82 mg/dL (0-110); Potassium, Blood 3.6 mmol/L (3.5-5.5); Sodium, Blood 139 mmol/L (136-145); Total Protein, Blood 6.9 g/dL (6.4-8.2); Triglycerides 109 mg/dL (30-160); Very Low Density Lipoprot Chol 21 mg/dL (6-32)
== END ==
LOC: LAB SHORT 15:29 → LAB 15:29
PROVIDERS: Physician Assistant
DX: E03.9 Hypothyroidism, unspecified (principal); E11.69 Type 2 diabetes mellitus with other specified complication; I12.9 Hypertensive chronic kidney disease with stage 1 through stage 4 chronic kidney disease, or unspecified chronic kidney disease
CPT/HCPCS: 36415; 80053; 80061; 83036; 84443; 85025

== ENCOUNTER → 2025-05-07 | Outpatient (CLI) | payer MEDICARE, OTHER | END | disposition home or self-care (01) | LOC: LAB SHORT 17:31 → LAB 17:31 | DX: N39.0 Urinary tract infection, site not specified (principal) | CPT/HCPCS: 87077; 87086; 87186 ==

== ENCOUNTER → 2025-05-13 | Outpatient (CLI) | payer MEDICARE, OTHER ==
[2025-05-13 20:09] LABS: Bacterial Vaginosis PCR Negative (NEGATIVE); Candida Group, PCR NOT DETECTED (NOT DETECT); Candida glabrata-krusei, PCR NOT DETECTED (NOT DETECT)
== END ==
LOC: LAB 17:15 → LAB SHORT 17:15
PROVIDERS: Physician Assistant Medical
DX: L29.2 Pruritus vulvae (principal)
CPT/HCPCS: 81515